=== PATIENT | female | born 1990 | race Caucasian/White ===

== ENCOUNTER → 2018-03-26 | Day surgery (SDC) | payer OTHER ==
[~2018-03-26] MED LIST: CEFAZOLIN SOD 2 GM/D5W 50ML 50 ML IV ONE; DEXAMETHASONE SOD PHOS INJ 4 MG/ML VIAL ONE; FENTANYL CITRATE/PF 100MCG/2 ML INJ ONE; IRON PO; LIDOCAINE HCL 2% LOCAL INJ 5 ML SDV VIAL INJ ONE; MIDAZOLAM HCL 2 MG/2 ML VIAL ONE; MISOPROSTOL 100 MCG TAB PO NR; ONDANSETRON HCL INJ 2 MG/ML VIAL ONE; OXYTOCIN INJ 10 UNIT/ML VIAL ONE; PRE NATAL VITAMINS PO; PROPOFOL IV EMULSION 10 MG/ML 20 ML VIAL ONE; SEVOFLURANE INHAL SOLN 250 ML PEN BTL ONE; SILVER NITRATE SWABS ONE
[2018-03-26 14:31] LABS: BASOPHILS % 0.2 % (0.0-1.0); EOSINOPHILS % 0.3 % (0.0-6.0); HEMOGLOBIN 13.4 g/dL (12.0-16.0); LYMPHOCYTES # (AUTO) 2.3 (1.0-3.2); LYMPHOCYTES % 18.2 % (18.0-39.1); MEAN CORPUSCULAR HEMOGLOBIN 28.9 pg (28-32); MEAN CORPUSCULAR HGB CONC 33.5 g/dL (31-35); MEAN CORPUSCULAR VOLUME 86.2 fL (81-99); MONOCYTES # (AUTO) 0.5 (0.2-0.8); NEUTROPHILS # (AUTO) 9.8 (2.1-6.9); NEUTROPHILS % 77.1 % (38.7-80.0); PLATELET COUNT 412 x10e3/uL (140-360); RED BLOOD COUNT 4.64 x10e6/uL (3.6-5.1); RED CELL DISTRIBUTION WIDTH 14.4 % (11.7-14.4)
--- NOTE | 2018-03-26 19:51 | Operative Report ---
DATE OF PROCEDURE: March 26, 2018 PREOPERATIVE DIAGNOSES 1. Missed . 2. A+ blood type. POSTOPERATIVE DIAGNOSES 1. Missed . 2. A+ blood type. TITLE OF PROCEDURE: Dilatation and suction curettage. ANESTHESIA: General with Dr. Junior. INDICATIONS FOR THE OPERATION: The patient is a 27-year-old 2, para 1-0-1-1, with last menstrual period December 24, 2017, at 13 weeks by dates, who presents with ultrasound done this morning showing no heart tones with an 8-week sized . She is here for D and C secondary to missed . She denies any bleeding or pain at this time. [place] and requested D and C be done before she has to go out of [place]. She is, therefore, taken to operating room at this time. FINDINGS AT SURGERY: There was a 6- to 8-week sized uterus. The cervix was closed. It was easily dilated with Erickson dilators. End products of conception were easily obtained and sent to pathology. PROCEDURE: The patient was taken to the operating room, placed on the table in the supine position. General anesthesia was administered. The patient was then placed in the lithotomy position. The perineum was prepared and draped in the usual sterile manner. Pelvic exam revealed a 6- to 8-week sized anteverted uterus with no adnexal masses. The bladder was drained by in-and-out catheterization. A weighted speculum was placed in the posterior vaginal wall. Then, with the aid of a right-angle retractor, the anterior lip of the cervix was grasped with a single-toothed tenaculum. Then, using Erickson dilators, endocervical canal was dilated up to #24 and using a #8 suction curette, the endometrial cavity was curetted. Tissue was obtained and sent to pathology for definitive diagnosis. Curettage was continued until the uterine cry was felt on all 4 pacheco of the uterus. Then, the endometrial cavity was exposed with a sharp curette and found to be free of any tissue, clots or debris. At this point, the uterus was well contracted. There was no bleeding noted and the procedure was deemed terminated. All the instruments were removed from the vagina. There was no complications noted. Estimated blood loss was 50 mL. The patient tolerated the procedure well, was transferred from operating room to recovery room in stable condition. She did receive Ancef prophylaxis for the procedure. The counts were all correct as well. Job#: [id number] CQ
== END | disposition home or self-care (01) ==
LOC: OR 16:00
PROVIDERS: ATTEND Obstetrics & Gynecology
DX: O02.1 Missed abortion (principal); Z67.10 Type A blood, Rh positive; Z87.442 Personal history of urinary calculi
CPT/HCPCS: 36415; 59812; 85025; 86850; 86900; J1100; J2001; J2250; J2405; J2590; 88305